=== PATIENT | female | born 1970 | race Caucasian/White ===

== ENCOUNTER 2016-08-09 04:30 | Emergency (ER) | payer BC, OTHER ==
[~2016-08-09] VITALS: Ht 165.1 cm; Wt 118.7 kg
[~2016-08-09 04:30] MED LIST: ALPRAZOLAM0.25 MG PO; COLACE50 MG PO; DICYCLOMINE HCL20 MG PO; DOXYCYCLINE HY100 MG PO; FEOSOL44 MG/ML PO; FLEXERIL10 MG PO; GABAPENTIN300 MG PO; HYDROCODON-ACE1 EAC9 PO; MICROGESTIN FE1 EACH PO; MINASTRIN 24 F1 EACH PO; MIRALAX17 GM PO; MOTRIN IB200 MG PO; MOTRIN800 MG PO; MULTIVITAMINS1 EAC6 PO; NAPROSYN500 MG PO; OMEPRAZOLE20 MG PO; OXYCODONE5 MG PO; PREDNISONE10 MG PO; PRENATAL TABLE1 EAC3 PO; PriLOSEC PO; VITAMIN B122500 MCG PO; WELLBUTRIN XL150 MG PO; XANAX0.25 MG PO; YAZ 28 TABLET1 EACH PO; ZOFRAN ODT4 MG PO; [UNRECOGNIZED DRUG - OTHER] TD; [UNRECOGNIZED DRUG - REMARK] TP
[2016-08-09] MEDS ORDERED: AMOXICILLIN875 MG PO (05:36)
[2016-08-09] MEDS ORDERED: SUDAFED 12-HOU120 MG PO (05:36)
[2016-08-09 06:00] VITALS: BP 142/77
== END 2016-08-09 06:00 | disposition home or self-care (01) ==
LOC: EME 04:30
DX: J01.90 Acute sinusitis, unspecified (principal); H66.91 Otitis media, unspecified, right ear; I10 Essential (primary) hypertension
CPT/HCPCS: 99281; 99284

== ENCOUNTER 2016-10-08 11:53 | Emergency (ER) | payer BC, OTHER ==
[~2016-10-08] VITALS: Ht 165.1 cm; Wt 119.5 kg
[~2016-10-08 11:53] MED LIST changes: +AMOXICILLIN875 MG PO; +SUDAFED 12-HOU120 MG PO
[2016-10-08 13:18] LABS: ADD MIUA? NO; BILIRUBIN NEGATIVE; BLOOD NEGATIVE; COLOR YELLOW ((YELLOW)); GLUCOSE (STRIP) NEGATIVE; KETONES NEGATIVE; LEUKOCYTES NEGATIVE; NITRITE NEGATIVE; PROTEIN (STRIP) NEGATIVE; SPECIFIC GRAVITY 1.016 (1.000-1.030); UCUL ADDED? NO; UROBILINOGEN 0.2 MG/DL (0.2-1.0)
[2016-10-08 13:52] LABS: HEMATOCRIT 41.8 % (36.0-46.0); MCH 28.2 PG (29.0-34.0); MCHC 32.5 G/DL (30.0-36.0); MCV 86.7 FL (83-99); MEAN PLAT.VOLUME 9.6 uM^3 (9.5-12.4); PLATELET COUNT 443 K/uL (156-360); RBC DIS.WIDTH-CV 13.7 % (11.8-14.6); RBC DIS.WIDTH-SD 43.6 % (39-53); RED BLOOD COUNT 4.82 M/uL (3.80-5.20); WHITE BLOOD COUNT 9.3 K/uL (4.1-10.2)
[2016-10-08 14:13] LABS: CHLORIDE 105 mEq/L (99-109); POTASSIUM 4.6 mEq/L (3.7-5.4); SODIUM 137 mEq/L (136-147)
[2016-10-08 14:15] LABS: GLUCOSE 90 mg/dL (70-99)
[2016-10-08 14:17] LABS: ANION GAP 12 MEQ/L (2-14)
[2016-10-08 14:19] LABS: GFR ESTIMATE (CALCULATED) > 59 mL/min/
[2016-10-08 14:20] LABS: UREA NITROGEN (BUN) 11 mg/dL (9-23)
[2016-10-08 14:28] LABS: QUANTITATIVE HCG < 4.0 MIU/ML
[2016-10-08 14:54] LABS: IRON 43 MCG/DL (35-150); SAMPLE HEMOLYSIS CHECK 0; SAMPLE ICTERIC CHECK 0; SAMPLE LIPEMIA CHECK 0
[2016-10-08 16:09] LABS: FERRITIN 9 NG/ML (10-291)
[2016-10-08] MEDS ORDERED: AMOXICILLIN500 MG PO (16:20)
[2016-10-08] MEDS ORDERED: LASIX20 MG PO (16:31)
[2016-10-08] MEDS ORDERED: MOTRIN800 MG PO (16:32)
[2016-10-08 16:38] VITALS: BP 143/82
== END 2016-10-08 16:38 | disposition home or self-care (01) ==
LOC: RME 11:53 → EME 11:53 → RME 16:38
PROVIDERS: Physician Assistant
DX: R60.0 Localized edema (principal); N93.9 Abnormal uterine and vaginal bleeding, unspecified; R30.0 Dysuria; M79.604 Pain in right leg; M79.605 Pain in left leg
CPT/HCPCS: 71020; 80048; 81003; 82728; 83540; 84702; 85027; 99281; 99284

== ENCOUNTER → 2016-10-21 | Outpatient (CLI) | payer BC, OTHER ==
[~2016-10-21] MED LIST changes: +AMOXICILLIN500 MG PO; +LASIX20 MG PO
== END | disposition home or self-care (01) ==
LOC: EKG 12:58
DX: R63.5 Abnormal weight gain (principal); Z68.41 Body mass index [BMI] 40.0-44.9, adult
CPT/HCPCS: 93306

== ENCOUNTER 2016-12-10 11:03 | Emergency (ER) | payer BC, OTHER ==
[~2016-12-10] VITALS: Ht 165.1 cm; Wt 120.1 kg
[2016-12-10 14:03] VITALS: BP 155/90
== END 2016-12-10 14:03 | disposition home or self-care (01) ==
LOC: EME 11:03
DX: M25.551 Pain in right hip (principal); M25.552 Pain in left hip
CPT/HCPCS: 73521; 99281; 99284

== ENCOUNTER 2017-02-25 15:26 | Emergency (ER) | payer BC, OTHER ==
[~2017-02-25] VITALS: Ht 165.1 cm; Wt 120.2 kg
[2017-02-25 16:36] LABS: MCH 25.7 PG (29.0-34.0); MCHC 31.8 G/DL (30.0-36.0); MCV 80.8 FL (83-99); MEAN PLAT.VOLUME 9.6 uM^3 (9.5-12.4); PLATELET COUNT 410 K/uL (156-360); RBC DIS.WIDTH-CV 14.8 % (11.8-14.6); RBC DIS.WIDTH-SD 43.4 % (39-53); RED BLOOD COUNT 4.21 M/uL (3.80-5.20); WHITE BLOOD COUNT 8.4 K/uL (4.1-10.2)
[2017-02-25 16:47] LABS: CHLORIDE 105 mEq/L (99-109); SODIUM 136 mEq/L (136-147)
[2017-02-25 16:48] LABS: GLUCOSE 88 mg/dL (70-99)
[2017-02-25 16:50] LABS: ANION GAP 9 MEQ/L (2-14)
[2017-02-25 16:52] LABS: GFR ESTIMATE (CALCULATED) > 59 mL/min/
[2017-02-25 16:53] LABS: UREA NITROGEN (BUN) 11 mg/dL (9-23)
[2017-02-25 17:01] LABS: QUANTITATIVE HCG < 4.0 MIU/ML
[2017-02-25 17:48] LABS: FERRITIN 4 NG/ML (10-291)
[2017-02-25 18:42] VITALS: BP 146/90
== END 2017-02-25 18:44 | disposition home or self-care (01) ==
LOC: EME 15:26
PROVIDERS: Nurse Practitioner Family
DX: D50.9 Iron deficiency anemia, unspecified (principal); N92.0 Excessive and frequent menstruation with regular cycle; F32.9 Major depressive disorder, single episode, unspecified; M79.7 Fibromyalgia; Z90.49 Acquired absence of other specified parts of digestive tract; Z88.6 Allergy status to analgesic agent
CPT/HCPCS: 80048; 82728; 84702; 85027; 99281; 99284

== ENCOUNTER 2017-03-07 17:55 | Emergency (ER) | payer BC, OTHER ==
[~2017-03-07] VITALS: Ht 165.1 cm; Wt 120.3 kg
[~2017-03-07 17:55] MED LIST changes: +GABAPENTIN100 MG PO; +SUPER B COMPLE1 EAC2 PO
[2017-03-07 18:20] LABS: HEMATOCRIT 34.8 % (36.0-46.0); MCH 25.3 PG (29.0-34.0); MCHC 31.3 G/DL (30.0-36.0); MCV 80.7 FL (83-99); MEAN PLAT.VOLUME 9.3 uM^3 (9.5-12.4); PLATELET COUNT 443 K/uL (156-360); RBC DIS.WIDTH-CV 15.2 % (11.8-14.6); RBC DIS.WIDTH-SD 44.5 % (39-53); RED BLOOD COUNT 4.31 M/uL (3.80-5.20); WHITE BLOOD COUNT 10.7 K/uL (4.1-10.2)
[2017-03-07 18:26] LABS: INTER. NORMALIZED RATIO 1.1; PROTHROMBIN TIME 12.2 SEC (10.2-12.9)
[2017-03-07 18:36] LABS: CHLORIDE 105 mEq/L (99-109); POTASSIUM 4.1 mEq/L (3.7-5.4); SODIUM 138 mEq/L (136-147)
[2017-03-07 18:37] LABS: GLUCOSE 122 mg/dL (70-99)
[2017-03-07 18:39] LABS: ANION GAP 12 MEQ/L (2-14)
[2017-03-07 18:41] LABS: GFR ESTIMATE (CALCULATED) > 59 mL/min/
[2017-03-07 18:42] LABS: UREA NITROGEN (BUN) 12 mg/dL (9-23)
[2017-03-07] MEDS ORDERED: ULTRAM50 MG PO (20:15)
[2017-03-07] MEDS ORDERED: XARELTO15 MG PO (20:15)
[2017-03-07 20:57] VITALS: BP 165/79
== END 2017-03-07 20:58 | disposition home or self-care (01) ==
LOC: EME 17:55
DX: I82.402 Acute embolism and thrombosis of unspecified deep veins of left lower extremity (principal); M79.7 Fibromyalgia; I10 Essential (primary) hypertension; R56.9 Unspecified convulsions
CPT/HCPCS: 80048; 85027; 85610; 93971; 99281; 99284

== ENCOUNTER 2017-03-17 10:11 | Emergency (ER) | payer BC, OTHER ==
[~2017-03-17] VITALS: Ht 165.1 cm; Wt 119.0 kg
[~2017-03-17 10:11] MED LIST changes: +ULTRAM50 MG PO; +XARELTO15 MG PO
[2017-03-17 11:11] LABS: EOSINOPHIL (%) 1.4 % (0-5); EOSINOPHIL COUNT 0.1 K/uL (0-0.3); HEMATOCRIT 30.5 % (36.0-46.0); IMMATURE GRANULOCYTE (%) 0.4 % (0.0-0.7); INSTRUMENT ABS NEUTROPHIL CT 5.5 K/uL; LYMPHOCYTE COUNT 1.7 K/uL (1.0-2.8); MCH 25.7 PG (29.0-34.0); MCHC 31.1 G/DL (30.0-36.0); MCV 82.7 FL (83-99); MEAN PLAT.VOLUME 9.9 uM^3 (9.5-12.4); MONOCYTE (%) 3.9 % (3-12); MONOCYTE COUNT 0.3 K/uL (0-0.8); NEUTROPHIL (%) 71.6 % (45-76); NEUTROPHIL COUNT 5.5 K/uL (1.8-6.4); PLATELET COUNT 326 K/uL (156-360); RBC DIS.WIDTH-CV 17.2 % (11.8-14.6); RBC DIS.WIDTH-SD 49.9 % (39-53); RED BLOOD COUNT 3.69 M/uL (3.80-5.20); WHITE BLOOD COUNT 7.7 K/uL (4.1-10.2)
[2017-03-17 11:23] LABS: CHLORIDE 105 mEq/L (99-109); POTASSIUM 3.9 mEq/L (3.7-5.4); SODIUM 138 mEq/L (136-147)
[2017-03-17 11:25] LABS: GLUCOSE 115 mg/dL (70-99)
[2017-03-17 11:26] LABS: ANION GAP 11 MEQ/L (2-14)
[2017-03-17 11:27] LABS: TOTAL BILIRUBIN 0.2 mg/dL (0.0-1.0)
[2017-03-17 11:29] LABS: ALKALINE PHOSPHATASE 70 IU/L (3-129); GFR ESTIMATE (CALCULATED) > 59 mL/min/; INTER. NORMALIZED RATIO 1.9
[2017-03-17 11:30] LABS: UREA NITROGEN (BUN) 12 mg/dL (9-23)
[2017-03-17 11:31] LABS: PROTHROMBIN TIME 21.7 SEC (10.2-12.9)
[2017-03-17 12:00] VITALS: BP 106/68
== END 2017-03-17 12:01 | disposition home or self-care (01) ==
LOC: EME 10:11
PROVIDERS: Physician Assistant
DX: D64.9 Anemia, unspecified (principal); R04.0 Epistaxis; N93.9 Abnormal uterine and vaginal bleeding, unspecified; Z86.718 Personal history of other venous thrombosis and embolism; Z79.01 Long term (current) use of anticoagulants
CPT/HCPCS: 80053; 85025; 85610; 85730; 86900; 86901; 99281; 99284

== ENCOUNTER 2017-04-06 14:42 | Emergency (ER) | payer BC, OTHER ==
[~2017-04-06] VITALS: Ht 165.1 cm; Wt 121.1 kg
[2017-04-06 18:31] VITALS: BP 110/63
== END 2017-04-06 18:32 | disposition home or self-care (01) ==
LOC: EME 14:42
DX: M79.672 Pain in left foot (principal); G89.29 Other chronic pain; M54.9 Dorsalgia, unspecified; Z86.718 Personal history of other venous thrombosis and embolism; Z79.01 Long term (current) use of anticoagulants
CPT/HCPCS: 93971; 99281; 99283

== ENCOUNTER → 2017-04-06 | Outpatient (CLI) | payer BC, OTHER | END | disposition home or self-care (01) | LOC: RAD 14:09 | DX: R51 Headache (principal); R04.0 Epistaxis | CPT/HCPCS: 70470 ==

== ENCOUNTER 2017-05-22 19:57 | Emergency (ER) | payer BC ==
[~2017-05-22] VITALS: Ht 165.1 cm; Wt 121.1 kg
[2017-05-22 21:54] LABS: HEMATOCRIT 34.7 % (36.0-46.0); MCHC 31.4 G/DL (30.0-36.0); MCV 86.1 FL (83-99); MEAN PLAT.VOLUME 9.5 uM^3 (9.5-12.4); PLATELET COUNT 440 K/uL (156-360); RBC DIS.WIDTH-CV 16.1 % (11.8-14.6); RBC DIS.WIDTH-SD 50.4 % (39-53); RED BLOOD COUNT 4.03 M/uL (3.80-5.20); WHITE BLOOD COUNT 10.3 K/uL (4.1-10.2)
[2017-05-22 22:00] LABS: INTER. NORMALIZED RATIO 1.1; PROTHROMBIN TIME 11.9 SEC (10.2-12.9)
[2017-05-22 22:03] LABS: PTT 31.2 SEC (25-37)
[2017-05-22] MEDS ORDERED: ULTRAM50 MG PO (23:30)
[2017-05-22 23:48] VITALS: BP 146/67
== END 2017-05-22 23:53 | disposition home or self-care (01) ==
LOC: EME 19:57
PROVIDERS: Nurse Practitioner Family
DX: M79.605 Pain in left leg (principal); I10 Essential (primary) hypertension; M79.7 Fibromyalgia; F32.9 Major depressive disorder, single episode, unspecified; R56.9 Unspecified convulsions; A69.20 Lyme disease, unspecified; Z86.718 Personal history of other venous thrombosis and embolism; Z88.8 Allergy status to other drugs, medicaments and biological substances
CPT/HCPCS: 85027; 85610; 85730; 93971; 99281; 99285

== ENCOUNTER 2017-07-25 21:45 | Emergency (ER) | payer BC ==
[~2017-07-25] VITALS: Ht 162.6 cm; Wt 117.3 kg
[2017-07-25 23:29] LABS: APPEARANCE CLOUDY ((CLEAR)); BILIRUBIN NEGATIVE; BLOOD LARGE; COLOR YELLOW ((YELLOW)); GLUCOSE (STRIP) NEGATIVE; KETONES NEGATIVE; LEUKOCYTES LARGE; NITRITE NEGATIVE; PROTEIN (STRIP) 100; SPECIFIC GRAVITY 1.021 (1.000-1.030)
[2017-07-25] MEDS ORDERED: BACTRIM,SEPT1 TABLET PO (23:45)
[2017-07-25] MEDS ORDERED: PYRIDIUM200 MG PO (23:45)
[2017-07-25 23:58] LABS: RED BLOOD CELLS TNTC /HPF (0-5); UCUL ADDED? YES; WHITE BLOOD CELLS TNTC /HPF (0-5)
[2017-07-26 00:11] VITALS: BP 146/77
== END 2017-07-26 00:12 | disposition home or self-care (01) ==
LOC: EXP 21:45 → EME 21:45 → EXP 07-26 00:12
DX: N39.0 Urinary tract infection, site not specified (principal); I10 Essential (primary) hypertension; G89.29 Other chronic pain; Z87.440 Personal history of urinary (tract) infections; M79.7 Fibromyalgia; R56.9 Unspecified convulsions; F32.9 Major depressive disorder, single episode, unspecified; Z86.718 Personal history of other venous thrombosis and embolism; Z88.5 Allergy status to narcotic agent; Z88.8 Allergy status to other drugs, medicaments and biological substances
CPT/HCPCS: 81003; 87077; 87086; 87186; 99281; 99284

== ENCOUNTER 2018-01-04 20:38 | Emergency (ER) | payer BC, OTHER ==
[~2018-01-04] VITALS: Ht 165.1 cm; Wt 119.5 kg
[~2018-01-04 20:38] MED LIST changes: +BACTRIM,SEPT1 TABLET PO; +PYRIDIUM200 MG PO
[2018-01-04] MEDS ORDERED: ULTRAM50 MG PO (23:02)
[2018-01-04 23:26] VITALS: BP 130/68
== END 2018-01-04 23:27 | disposition home or self-care (01) ==
LOC: EME 20:38
DX: R59.0 Localized enlarged lymph nodes (principal); M79.672 Pain in left foot; M79.662 Pain in left lower leg; R20.2 Paresthesia of skin; R10.32 Left lower quadrant pain; Z86.718 Personal history of other venous thrombosis and embolism; I10 Essential (primary) hypertension; M79.7 Fibromyalgia; R56.9 Unspecified convulsions; G89.29 Other chronic pain; M54.9 Dorsalgia, unspecified; F32.9 Major depressive disorder, single episode, unspecified; Z90.49 Acquired absence of other specified parts of digestive tract; Z88.5 Allergy status to narcotic agent; Z88.6 Allergy status to analgesic agent; Z88.8 Allergy status to other drugs, medicaments and biological substances
CPT/HCPCS: 93971; 99281; 99284

== ENCOUNTER 2018-01-15 00:32 | Emergency (ER) | payer BC ==
[~2018-01-15] VITALS: Ht 165.1 cm; Wt 118.5 kg
[2018-01-15 01:02] LABS: HEMATOCRIT 34.2 % (36.0-46.0); HEMOGLOBIN 11.1 G/DL (11.9-15.5); MCH 26.6 PG (29.0-34.0); MCHC 32.5 G/DL (30.0-36.0); MCV 81.8 FL (83-99); PLATELET COUNT 444 K/uL (156-360); RBC DIS.WIDTH-CV 14.5 % (11.8-14.6); RBC DIS.WIDTH-SD 42.7 % (39-53); RED BLOOD COUNT 4.18 M/uL (3.80-5.20); WHITE BLOOD COUNT 9.8 K/uL (4.1-10.2)
[2018-01-15 01:13] LABS: CHLORIDE 106 mEq/L (99-109)
[2018-01-15 01:14] LABS: POTASSIUM 4.3 mEq/L (3.7-5.4); SODIUM 136 mEq/L (136-147)
[2018-01-15 01:16] LABS: GLUCOSE 104 mg/dL (70-99); TOTAL PROTEIN 7.3 g/dL (6.4-8.3)
[2018-01-15 01:18] LABS: TOTAL BILIRUBIN 0.3 mg/dL (0.0-1.0)
[2018-01-15 01:19] LABS: ALKALINE PHOSPHATASE 96 IU/L (3-129); CREATININE 0.7 mg/dL (0.6-1.3); GFR ESTIMATE (CALCULATED) > 59 mL/min/
[2018-01-15 01:21] LABS: AST (GOT) 14 IU/L (2-34); UREA NITROGEN (BUN) 14 mg/dL (9-23)
[2018-01-15 01:22] LABS: ALT (GPT) 14 IU/L (3-49)
[2018-01-15 01:23] LABS: LIPASE 30 U/L (1.0-51.0)
[2018-01-15 01:29] LABS: QUANTITATIVE HCG < 4.0 MIU/ML
[2018-01-15] MEDS ORDERED: ULTRAM50 MG PO (02:32)
[2018-01-15 02:42] LABS: APPEARANCE CLEAR ((CLEAR)); BILIRUBIN NEGATIVE; BLOOD SMALL; COLOR STRAW ((YELLOW)); GLUCOSE (STRIP) NEGATIVE; KETONES NEGATIVE; LEUKOCYTES MODERATE; NITRITE NEGATIVE; PROTEIN (STRIP) NEGATIVE; UROBILINOGEN 0.2 MG/DL (0.2-1.0)
[2018-01-15 02:46] LABS: BACTERIA RARE /HPF; EPITHELIAL CELLS RARE /HPF; MUCUS TRACE /LPF; UCUL ADDED? YES
[2018-01-15] MEDS ORDERED: BACTRIM,SEPT1 TABLET PO (03:40)
[2018-01-15] MEDS ORDERED: TORADOL10 MG PO (03:48)
[2018-01-15 04:05] VITALS: BP 135/68
== END 2018-01-15 04:06 | disposition home or self-care (01) ==
LOC: EME 00:32
DX: R10.32 Left lower quadrant pain (principal); R11.0 Nausea; Z86.718 Personal history of other venous thrombosis and embolism; Z90.49 Acquired absence of other specified parts of digestive tract
CPT/HCPCS: 74176; 80053; 81003; 83690; 84702; 85027; 87077; 87086; 87186; 99281; 99284; J1885; J2405; J7030

== ENCOUNTER 2018-01-18 22:49 | Emergency (ER) | payer BC ==
[~2018-01-18] VITALS: Ht 165.1 cm; Wt 119.3 kg
[~2018-01-18 22:49] MED LIST changes: +TORADOL10 MG PO
[2018-01-18 23:30] LABS: HEMATOCRIT 33.2 % (36.0-46.0); HEMOGLOBIN 10.5 G/DL (11.9-15.5); MCH 26.1 PG (29.0-34.0); MCHC 31.6 G/DL (30.0-36.0); MCV 82.6 FL (83-99); PLATELET COUNT 431 K/uL (156-360); RBC DIS.WIDTH-CV 14.6 % (11.8-14.6); RBC DIS.WIDTH-SD 43.6 % (39-53); RED BLOOD COUNT 4.02 M/uL (3.80-5.20); WHITE BLOOD COUNT 10.3 K/uL (4.1-10.2)
[2018-01-18 23:41] LABS: ALBUMIN 3.8 g/dL (3.2-4.8); CHLORIDE 107 mEq/L (99-109); POTASSIUM 3.9 mEq/L (3.7-5.4); SODIUM 139 mEq/L (136-147)
[2018-01-18 23:44] LABS: GLUCOSE 105 mg/dL (70-99)
[2018-01-18 23:45] LABS: TOTAL BILIRUBIN 0.3 mg/dL (0.0-1.0)
[2018-01-18 23:47] LABS: ALKALINE PHOSPHATASE 89 IU/L (3-129); CREATININE 0.8 mg/dL (0.6-1.3); GFR ESTIMATE (CALCULATED) > 59 mL/min/
[2018-01-18 23:48] LABS: UREA NITROGEN (BUN) 13 mg/dL (9-23)
[2018-01-18 23:49] LABS: AST (GOT) 14 IU/L (2-34)
[2018-01-18 23:50] LABS: ALT (GPT) 14 IU/L (3-49)
[2018-01-18 23:56] LABS: QUANTITATIVE HCG < 4.0 MIU/ML
[2018-01-19 01:13] LABS: LIPASE 30 U/L (1.0-51.0)
[2018-01-19 01:18] LABS: TROP-I INTERPRETATION NEGATIVE; TROPONIN-I < 0.01 ng/mL (0.0-0.30)
[2018-01-19 03:42] LABS: APPEARANCE CLEAR ((CLEAR)); BILIRUBIN NEGATIVE; BLOOD SMALL; COLOR YELLOW ((YELLOW)); GLUCOSE (STRIP) NEGATIVE; KETONES NEGATIVE; LEUKOCYTES SMALL; NITRITE NEGATIVE; PROTEIN (STRIP) NEGATIVE; SPECIFIC GRAVITY 1.011 (1.000-1.030); UROBILINOGEN 0.2 MG/DL (0.2-1.0)
[2018-01-19 03:44] LABS: BACTERIA RARE /HPF; EPITHELIAL CELLS 1+ /HPF; MUCUS TRACE /LPF; RED BLOOD CELLS 0-5 /HPF (0-5); UCUL ADDED? YES
[2018-01-19] MEDS ORDERED: OMEPRAZOLE40 M1 PO (04:43)
[2018-01-19] MEDS ORDERED: ZOFRAN4 MG PO (04:43)
[2018-01-19] MEDS ORDERED: CARAFATE1 GM PO (04:43)
[2018-01-19 04:56] LABS: TROP-I INTERPRETATION NEGATIVE; TROPONIN-I < 0.01 ng/mL (0.0-0.30)
[2018-01-19 05:47] VITALS: BP 131/79
== END 2018-01-19 05:49 | disposition home or self-care (01) ==
LOC: EME 22:49
PROVIDERS: Physician Assistant Medical
DX: R11.2 Nausea with vomiting, unspecified (principal); R14.0 Abdominal distension (gaseous); R10.10 Upper abdominal pain, unspecified; M79.7 Fibromyalgia; I10 Essential (primary) hypertension; F32.9 Major depressive disorder, single episode, unspecified; R56.9 Unspecified convulsions; Z87.440 Personal history of urinary (tract) infections; Z86.718 Personal history of other venous thrombosis and embolism; Z90.49 Acquired absence of other specified parts of digestive tract; Z88.5 Allergy status to narcotic agent; Z88.6 Allergy status to analgesic agent; Z88.8 Allergy status to other drugs, medicaments and biological substances
CPT/HCPCS: 74177; 80053; 81003; 83690; 84484; 84702; 85027; 87086; 93005; 99281; 99285; J2405; J7030